=== PATIENT | male | born 1965 | race Caucasian/White ===

== ENCOUNTER 2021-04-23 14:36 | Inpatient (IN) | payer OTHER ==
[~2021-04-23] VITALS: Ht 182.9 cm; Wt 86.2 kg
[2021-04-23] MEDS ORDERED: TENORMIN25 MG (15:18)
== END 2021-04-24 13:18 | disposition expired | DRG 637 ==
LOC: ER 14:36 → ICU-2 19:42
PROVIDERS: ADMIT Internal Medicine; ATTEND Internal Medicine
PROC: 0BH17EZ Insertion of Endotracheal Airway into Trachea, Via Natural or Artificial Opening (ICD-10-PCS; principal; 2021-04-23)
PROC: 4A033R1 Measurement of Arterial Saturation, Peripheral, Percutaneous Approach (ICD-10-PCS; 2021-04-23)
PROC: 5A1935Z Respiratory Ventilation, Less than 24 Consecutive Hours (ICD-10-PCS; 2021-04-23)
PROC: 30233N1 Transfusion of Nonautologous Red Blood Cells into Peripheral Vein, Percutaneous Approach (ICD-10-PCS; 2021-04-24)
DX: E11.11 Type 2 diabetes mellitus with ketoacidosis with coma (principal); G93.41 Metabolic encephalopathy; K85.80 Other acute pancreatitis without necrosis or infection; N17.8 Other acute kidney failure; E87.2 Acidosis; K92.0 Hematemesis; G93.1 Anoxic brain damage, not elsewhere classified; Z20.822 Contact with and (suspected) exposure to COVID-19; R57.1 Hypovolemic shock; I46.9 Cardiac arrest, cause unspecified